=== PATIENT | female | born 1965 | race Caucasian/White ===

== ENCOUNTER 2018-08-19 20:50 | Emergency (ER) | payer MEDICARE ==
[2018-08-19] MEDS ORDERED: Sodium Chloride 0.9% 1,000 ML IV SCH (22:15)
--- NOTE | 2018-08-19 22:18 | EDM.PDOC ---
ED HPI GENERAL MEDICAL PROBLEM - General Chief Complaint: Drug or Alcohol Abuse Stated Complaint: ALISTAIR Time Seen by Provider: 08/19/18 22:05 Source of Information: Reports: EMS Notes Reviewed, RN Notes Reviewed History Limitations: Reports: Intoxication - History of Present Illness INITIAL COMMENTS - FREE TEXT/NARRATIVE: Patient is a 52-year-old female who presents via [facility] for the evaluation of a suspected head injury. The patient has been drinking heavily, and was witnessed falling outside of her apartment and hitting her head. The neighbors present told EMS personnel that they thought the patient was unconscious for a few minutes. The patient is inebriated at this time, and unable to answer many questions. She denies any pain in her body, and she states she was drinking beer tonight. - Related Data Allergies Allergy/AdvReac Type Severity Reaction Status Date / Time Unable to Assess Allergy Unverified 08/19/18 20:51 Home Meds: Home Meds . [Unable to Verify Home Med List] 08/19/18 [History] ED ROS GENERAL - Review of Systems Review Of Systems: See Below Constitutional: Reports: No Symptoms HEENT: Reports: No Symptoms Respiratory: Reports: No Symptoms Cardiovascular: Reports: No Symptoms Endocrine: Reports: No Symptoms GI/Abdominal: Reports: No Symptoms : Reports: No Symptoms Musculoskeletal: Reports: No Symptoms Skin: Reports: No Symptoms Neurological: Reports: Other (Witnessed LOC of a few minutes) Psychiatric: Reports: No Symptoms Hematologic/Lymphatic: Reports: No Symptoms - Physical Exam Exam: See Below Exam Limited By: Intoxication General Appearance: WD/WN, No Apparent Distress (pt is sleeping, is arousable and answers very few questions) Eye Exam: Bilateral Eye: Normal Inspection, PERRL Ears: Normal External Exam, Normal Canal, Hearing Grossly Normal, Normal TMs Nose: Normal Inspection, Normal Mucosa, No Blood Throat/Mouth: Normal Inspection, Normal Lips, Normal Teeth, Normal Gums, Normal Oropharynx, Normal Voice, No Airway Compromise Head Exam: Atraumatic, Normocephalic Neck: Normal Inspection, Supple, Non-Tender Respiratory/Chest: No Respiratory Distress, Lungs Clear, Normal Breath Sounds, No Accessory Muscle Use, Chest Non-Tender Cardiovascular: Normal Peripheral Pulses, Regular Rate, Rhythm, No Murmur GI/Abdominal: Normal Bowel Sounds, Soft, No Distention, No Mass. No: Guarding, Rigid Neuro Exam (Abbreviated): Other (acute alcohol intoxication, hard to assess. She does answer question with garbled speech when asked.) Back Exam: Normal Inspection Extremities: Normal Inspection, Normal Capillary Refill Skin Exam: Warm, Dry, Intact, Normal Color, No Rash Course - Vital Signs Last Recorded V/S: Last Vital Signs Temp 96.8 F 08/19/18 20:51 Pulse 93 08/19/18 20:51 Resp 18 08/19/18 20:51 BP 104/66 08/19/18 20:51 Pulse Ox 95 08/19/18 20:51 - Orders/Labs/Meds Orders: Active Orders 24 hr Category Date Time Status Head wo Cont [CT] Stat Exams 08/19/18 22:10 Ordered CBC WITH MANUAL DIFF [HEME] Stat Lab 08/19/18 22:11 Ordered Sodium Chloride 0.9% [Normal Saline] 1,000 ml Med 08/19/18 22:15 Ordered IV ASDIRECTED Medication Orders Sodium Chloride (Normal Saline) 1,000 mls @ 500 mls/hr IV ASDIRECTED JEN Last Admin: 08/19/18 22:18 Dose: 500 mls/hr Labs: Laboratory Tests 08/19/18 08/19/18 Range/Units 21:00 21:00 Neutrophils % (Manual) 64 H (40-60) % Band Neutrophils % 0 (0-10) % Lymphocytes % (Manual) 33 (20-40) % Atypical Lymphs % 0 % Monocytes % (Manual) 3 (2-10) % Eosinophils % (Manual) 0 L (0.7-5.8) % Basophils % (Manual) 0 L (0.1-1.2) Platelet Estimate Adequate RBC Morph Comment Normal Sodium 137 (136-145) mEq/L Potassium 3.8 (3.5-5.1) mEq/L Chloride 104 (98-107) mEq/L Carbon Dioxide 19 L (21-32) mEq/L Anion Gap 17.8 H (5-15) BUN 10 (7-18) mg/dL Creatinine 0.8 (0.55-1.02) mg/dL Est Cr Clr Drug Dosing TNP Estimated GFR (MDRD) > 60 (>60) mL/min BUN/Creatinine Ratio 12.5 L (14-18) Glucose 96 (74-106) mg/dL Calcium 8.8 (8.5-10.1) mg/dL Total Bilirubin 0.3 (0.2-1.0) mg/dL AST 37 (15-37) U/L ALT 61 H (14-59) U/L Alkaline Phosphatase 82 (46-116) U/L Total Protein 7.5 (6.4-8.2) g/dl Albumin 4.2 (3.4-5.0) g/dl Globulin 3.3 gm/dL Albumin/Globulin Ratio 1.3 (1-2) Ethyl Alcohol 0.25 (0.00) gm% Meds: Medications Generic Name Dose Route Start Last Admin Trade Name Freq PRN Reason Stop Dose Admin Sodium Chloride 1,000 mls @ 500 mls/hr 08/19/18 22:15 08/19/18 22:18 Normal Saline IV 500 mls/hr ASDIRECTED [facility] Administration - Re-Assessments/Exams Free Text/Narrative Re-Assessment/Exam: 08/19/18 22:18 Patient is brought to the ED for the evaluation of a suspected head injury. The patient is acutely intoxicated, I have ordered a head CT without contrast for further evaluation of this suspected head injury, have also ordered IV fluids to be started, a blood alcohol level, CBC, and CMP for further evaluation. 08/19/18 23:[address], is done and does not demonstrate any sign of acute bleed or infarct. This is reassuring. She will continue to get IV fluids and she was requesting some to drink some water at this time, this is fine with me at this time. 08/19/18 23:01 Pt's ETOH os 0.25 at this time, all other labs are WNL for her inebriated state. Pt was up to bathroom and was requesting to go home, I have talked her into staying for the IV fluids left (around 500mL). She will discharged after the fluids are done. Departure - Departure Time of Disposition: 23:10 Disposition: Home, Self-Care 01 Condition: Fair Clinical Impression: Alcohol intoxication Qualifiers: Complication of substance-induced condition: uncomplicated Qualified Code(s): F10.920 - Alcohol use, unspecified with intoxication, uncomplicated Head injury Qualifiers: Encounter type: initial encounter Qualified Code(s): S09.90XA - Unspecified injury of head, initial encounter - Discharge Information *PRESCRIPTION DRUG MONITORING PROGRAM REVIEWED*: No *COPY OF PRESCRIPTION DRUG MONITORING REPORT IN PATIENT PRICILLA: No Instructions: Alcohol Intoxication, [id number] Additional Instructions: You have been evaluated in the ED tonight for your head injury. You were acutely intoxicated at this ED visit. Your blood alcohol level was 0.25. You were given an IV bag of fluids to help remedy this. Your head CT done tonight shows no sign of any acute bleed or bony abnormality due to your fall and witnessed loss of consciousness by her neighbors. You will need to find someone to give you a ride home tonight, you should not be driving any sort of vehicle under the influence of alcohol. Please try to abstain from alcohol ingestion for the next 24 hours. Please return to the ED if your symptoms should change or worsen. - My Orders Last 24 Hours: My Active Orders 08/19/18 22:10 Head wo Cont [CT] Stat 08/19/18 22:11 CBC WITH MANUAL DIFF [HEME] Stat 08/19/18 22:15 Sodium Chloride 0.9% [Normal Saline] 1,000 ml IV ASDIRECTED - Assessment/Plan Last 24 Hours: My Active Orders 08/19/18 22:10 Head wo Cont [CT] Stat 08/19/18 22:11 CBC WITH MANUAL DIFF [HEME] Stat 08/19/18 22:15 Sodium Chloride 0.9% [Normal Saline] 1,000 ml IV ASDIRECTED
--- NOTE | 2018-08-21 10:42 | CT ---
Head CT Technique: Multiple axial sections through the brain were obtained. Intravenous contrast was not utilized. Comparison: No prior intracranial imaging. Findings: Ventricles along with basal cisterns and sulci over the convexities are mildly prominent. No abnormal parenchymal densities are seen. No evidence of intracranial hemorrhage. No midline shift or mass effect is seen. Bone window settings were reviewed which show no acute calvarial abnormality. Visualized sinuses are clear. Impression: 1. Mild generalized atrophy. 2. No acute intracranial abnormality is seen. Diagnostic code #2 I agree with preliminary report from [facility], finalized on 08/19/18, 11:52 PM Central Time
== END 2018-08-20 05:52 | disposition home or self-care (01) ==
LOC: JD.ED 20:50
DX: S06.9X9A Unspecified intracranial injury with loss of consciousness of unspecified duration, initial encounter (principal); F10.129 Alcohol abuse with intoxication, unspecified; Y90.8 Blood alcohol level of 240 mg/100 ml or more; W01.198A Fall on same level from slipping, tripping and stumbling with subsequent striking against other object, initial encounter
CPT/HCPCS: 36415; 70450; 80053; 85007; 85027; 96360; 96361; 99285; G0480; J7040; 99283

== ENCOUNTER 2018-11-20 11:46 | Emergency (ER) | payer MEDICARE ==
[2018-11-20] MEDS ORDERED: HYDROmorphone 0.5 MG/0.5 ML Syringe IVPUSH ONE (12:33)
[2018-11-20] MEDS ORDERED: Ondansetron 4 MG/2 ML SDV IVPUSH ONE (12:33)
[2018-11-20] MEDS ORDERED: Sodium Chloride 0.9% 10 ML Syringe FLUSH PRN (12:33)
[2018-11-20] MEDS ORDERED: Sodium Chloride 0.9% 1,000 ML IV ONE (12:33)
--- NOTE | 2018-11-20 12:40 | EDM.PDOC ---
ED HPI GENERAL MEDICAL PROBLEM - General Chief Complaint: Gastrointestinal Problem Stated Complaint: ABD PAIN/VOMITING/DIARRHEA/RECTAL BLEEDING Time Seen by Provider: 11/20/18 12:25 Source of Information: Reports: Patient History Limitations: Reports: No Limitations - History of Present Illness INITIAL COMMENTS - FREE TEXT/NARRATIVE: Patient is a 53-year-old female who presents to the ED complaining of left lower quadrant abdominal pain with nausea vomiting, diarrhea, and blood within her stool. Patient states this morning approximately 4:00 she awoke with nausea and has vomited multiple times. She also developed some diarrhea and noticed some blood present within her stool. Pain is located a left lower quadrant has had frequent BMs since onset. There has been no ingestion of any questionable food. His been no fever, dysuria, history of C. difficile, history of ulcerative colitis or Crohn's, history of diverticulitis, history constipation, history of acid reflux, and or recent NSAID use. She just recently completed azithromycin for sinus infection one week ago. There's been no recent sick contacts. She denies any lightheadedness, chest pain, short of breath, dysuria, hematuria, rash, or any additional complaints. Left Lower Abdomen Pain Score (Numeric/FACES): 9 - Related Data Allergies Allergy/AdvReac Type Severity Reaction Status Date / Time bee venom protein (honey bee) Allergy Anaphylactic Verified 11/20/18 12:12 Shock gabapentin Allergy Hives Verified 11/20/18 12:12 lamotrigine [From Lamictal] Allergy Hives Verified 11/20/18 12:12 liver extract Allergy Hives Verified 11/20/18 12:12 Penicillins Allergy Anaphylactic Verified 11/20/18 12:12 Shock Home Meds: Home Meds Acetaminophen/HYDROcodone [[place] 325-5 MG] 1 tab PO Q6H PRN #12 tablet 11/20/18 [Rx] Ciprofloxacin HCl [Cipro] 500 mg PO BID #14 tablet 11/20/18 [Rx] Cyanocobalamin/Folic Acid [Vitamin U23-Umhth Acid] 1 tab PO DAILY 11/20/18 [ History] Ergocalciferol (Vitamin D2) [Vitamin D2] 2,000 units PO DAILY 11/20/18 [History] Levothyroxine 112 mcg PO DAILY 11/20/18 [History] Lisinopril [Prinivil] 20 mg PO DAILY 11/20/18 [History] Melatonin 6 mg PO BEDTIME PRN 11/20/18 [History] Ondansetron [Zofran ODT] 4 mg PO Q6H PRN #15 tab.dis 11/20/18 [Rx] QUEtiapine Fumarate [Seroquel] 400 mg PO DAILY 11/20/18 [History] Rosuvastatin [Crestor] 10 mg PO DAILY 11/20/18 [History] Topiramate [Topamax] 50 mg PO DAILY 11/20/18 [History] Zolpidem Tartrate [Ambien] 5 mg PO BEDTIME 11/20/18 [History] cloNIDine [Catapres-TTS 1] 0.2 mg PO DAILY PRN 11/20/18 [History] metroNIDAZOLE [Flagyl] 500 mg PO Q8H #21 tab 11/20/18 [Rx] Past Medical History HEENT History: Reports: Impaired Vision Cardiovascular History: Reports: Arrhythmia Respiratory History: Reports: Other (See Below) Other Respiratory History: chronic sinusitis [employer] History: Reports: Musculoskeletal History: Reports: Fibromyalgia Psychiatric History: Reports: Anxiety, Bipolar, PTSD Endocrine/Metabolic History: Reports: Hypothyroidism Hematologic History: Reports: Anemia Dermatologic History: Reports: Psoriasis - Past Surgical History HEENT Surgical History: Reports: Oral Surgery Female Surgical History: Reports: Section, Hysterectomy, Tubal Ligation Musculoskeletal Surgical History: Reports: Other (See Below) Other Musculoskeletal Surgeries/Procedures:: R foot fusion Social & Family History - Family History Family Medical History: Noncontributory - Tobacco Use Smoking Status *Q: Current Every Day Smoker Years of Tobacco use: 8 Packs/Tins Daily: 0.2 - Caffeine Use Caffeine Use: Reports: Coffee, Energy Drinks, Soda, Tea - Recreational Drug Use Recreational Drug Use: No ED ROS GENERAL - Review of Systems Review Of Systems: See Below Constitutional: Reports: Decreased Appetite. Denies: Fever, Chills, Malaise, Weakness, Fatigue Respiratory: Denies: Shortness of Breath, Cough, Sputum Cardiovascular: Denies: Chest Pain, Dyspnea on Exertion, Lightheadedness, Palpitations, Syncope GI/Abdominal: Reports: Abdominal Pain, Bloody Stool, Diarrhea, Decreased Appetite, Nausea, Vomiting. Denies: Black Stool, Constipation, Difficulty Swallowing, Distension, Flatus, Hematemesis, Melena : Denies: Discharge, Dysuria, Flank Pain, Frequency, Hematuria, Urgency Musculoskeletal: Reports: No Symptoms Skin: Reports: No Symptoms ED EXAM, GI/ABD - Physical Exam Exam: See Below Exam Limited By: No Limitations General Appearance: Alert, WD/WN, No Apparent Distress Eyes: Bilateral: Normal Appearance Ears: Hearing Grossly Normal Nose: Normal Inspection Throat/Mouth: Normal Inspection, Normal Oropharynx, Normal Voice, No Airway Compromise Head: Atraumatic, Normocephalic Neck: Normal Inspection, Supple, Non-Tender, Full Range of Motion Respiratory/Chest: No Respiratory Distress, Lungs Clear, Normal Breath Sounds, No Accessory Muscle Use, Chest Non-Tender Cardiovascular: Normal Peripheral Pulses, Regular Rate, Rhythm, No Murmur GI/Abdominal Exam: Normal Bowel Sounds, Soft, No Organomegaly, No Distention, Tender (Left lower quadrant) Back Exam: Normal Inspection, Full Range of Motion. No: CVA Tenderness (L), CVA Tenderness (R) Extremities: Normal Inspection, Normal Range of Motion, Non-Tender Neurological: Alert, Oriented, CN II-XII Intact, Normal Cognition, No Motor/ Sensory Deficits Psychiatric: Normal Affect, Normal Mood Skin Exam: Warm, Dry, Intact, Normal Color, No Rash Course - Vital Signs Last Recorded V/S: Last Vital Signs Temp 97.9 F 11/20/18 12:04 Pulse 85 11/20/18 12:04 Resp 22 H 11/20/18 12:04 BP 166/98 H 11/20/18 12:04 Pulse Ox 98 11/20/18 12:04 - Orders/Labs/Meds Orders: Active Orders 24 hr Category Date Time Status Peripheral IV Care [RC] . DIRECTED Care 11/20/18 12:34 Active CULTURE STOOL + SHIGATOX [RM] Stat Lab 11/20/18 12:30 Received Sodium Chloride 0.9% [Saline Flush] Med 11/20/18 12:33 Active 10 ml FLUSH ASDIRECTED PRN Isolation [COMM] Stat Oth 11/20/18 12:34 Ordered Peripheral IV Insertion Adult [OM.PC] Routine Oth 11/20/18 12:33 Ordered Medication Orders Sodium Chloride (Saline Flush) 10 ml FLUSH ASDIRECTED PRN PRN Reason: Keep Vein Open Last Admin: 11/20/18 12:58 Dose: 10 ml Labs: Laboratory Tests 11/20/18 11/20/18 11/20/18 Range/Units 12:30 12:55 12:55 WBC 8.66 (3.98-10.04) K/mm3 RBC 5.02 (3.98-5.22) M/mm3 Hgb 14.9 (11.2-15.7) gm/L Hct 43.6 (34.1-44.9) % MCV 86.9 (79.4-94.8) fl MCH 29.7 (25.6-32.2) pg MCHC 34.2 (32.2-35.5) g/dl RDW Std Deviation 40.4 (36.4-46.3) fL Plt Count 272 (182-369) K/mm3 MPV 8.8 L (9.4-12.3) fl Neutrophils % (Manual) 80 H (40-60) % Band Neutrophils % 4 (0-10) % Lymphocytes % (Manual) 12 L (20-40) % Atypical Lymphs % 0 % Monocytes % (Manual) 4 (2-10) % Eosinophils % (Manual) 0 L (0.7-5.8) % Basophils % (Manual) 0 L (0.1-1.2) Platelet Estimate Adequate RBC Morph Comment Normal Sodium 137 (136-145) mEq/L Potassium 3.9 (3.5-5.1) mEq/L Chloride 106 (98-107) mEq/L Carbon Dioxide 21 (21-32) mEq/L Anion Gap 13.9 (5-15) BUN 9 (7-18) mg/dL Creatinine 0.8 (0.55-1.02) mg/dL Est Cr Clr Drug Dosing 65.73 mL/min Estimated GFR (MDRD) > 60 (>60) mL/min BUN/Creatinine Ratio 11.3 L (14-18) Glucose 116 H (74-106) mg/dL Lactic Acid (0.4-2.0) mmol/L Calcium 9.3 (8.5-10.1) mg/dL Total Bilirubin 0.5 (0.2-1.0) mg/dL AST 22 (15-37) U/L ALT 59 (14-59) U/L Alkaline Phosphatase 84 (46-116) U/L C-Reactive Protein < 0.2 (<1.0) mg/dL Total Protein 8.0 (6.4-8.2) g/dl Albumin 4.5 (3.4-5.0) g/dl Globulin 3.5 gm/dL Albumin/Globulin Ratio 1.3 (1-2) Lipase 125 (73-393) U/L Urine Color (Yellow) Urine Appearance (Clear) Urine pH (5.0-8.0) Ur Specific [place] (1.005-1.030) Urine Protein (Negative) Urine Glucose (UA) (Negative) Urine Ketones (Negative) Urine Occult Blood (Negative) Urine Nitrite (Negative) Urine Bilirubin (Negative) Urine Urobilinogen (0.2-1.0) Ur Leukocyte Esterase (Negative) Urine RBC (0-5) /hpf Urine WBC (0-5) /hpf Ur Squamous Epith Cells (0-5) /hpf Urine Bacteria (FEW) /hpf Urine Mucus (FEW) /hpf C.difficile [id number] Presumptive negative C. difficile Tox (PCR) Negative 11/20/18 11/20/18 Range/Units 13:26 Unknown WBC (3.98-10.04) K/mm3 RBC (3.98-5.22) M/mm3 Hgb (11.2-15.7) gm/L Hct (34.1-44.9) % MCV (79.4-94.8) fl MCH (25.6-32.2) pg MCHC (32.2-35.5) g/dl RDW Std Deviation (36.4-46.3) fL Plt Count (182-369) K/mm3 MPV (9.4-12.3) fl Neutrophils % (Manual) (40-60) % Band Neutrophils % (0-10) % Lymphocytes % (Manual) (20-40) % Atypical Lymphs % % Monocytes % (Manual) (2-10) % Eosinophils % (Manual) (0.7-5.8) % Basophils % (Manual) (0.1-1.2) Platelet Estimate RBC Morph Comment Sodium (136-145) mEq/L Potassium (3.5-5.1) mEq/L Chloride (98-107) mEq/L Carbon Dioxide (21-32) mEq/L Anion Gap (5-15) BUN (7-18) mg/dL Creatinine (0.55-1.02) mg/dL Est Cr Clr Drug Dosing mL/min Estimated GFR (MDRD) (>60) mL/min BUN/Creatinine Ratio (14-18) Glucose (74-106) mg/dL Lactic Acid 1.5 (0.4-2.0) mmol/L Calcium (8.5-10.1) mg/dL Total Bilirubin (0.2-1.0) mg/dL AST (15-37) U/L ALT (14-59) U/L Alkaline Phosphatase (46-116) U/L C-Reactive Protein (<1.0) mg/dL Total Protein (6.4-8.2) g/dl Albumin (3.4-5.0) g/dl Globulin gm/dL Albumin/Globulin Ratio (1-2) Lipase (73-393) U/L Urine Color Light yellow (Yellow) Urine Appearance Clear (Clear) Urine pH 7.0 (5.0-8.0) Ur Specific [place] 1.015 (1.005-1.030) Urine Protein Negative (Negative) Urine Glucose (UA) Negative (Negative) Urine Ketones Negative (Negative) Urine Occult Blood Trace-intact H (Negative) Urine Nitrite Negative (Negative) Urine Bilirubin Negative (Negative) Urine Urobilinogen 0.2 (0.2-1.0) Ur Leukocyte Esterase Negative (Negative) Urine RBC Not seen (0-5) /hpf Urine WBC Not seen (0-5) /hpf Ur Squamous Epith Cells Not seen (0-5) /hpf Urine Bacteria Not seen (FEW) /hpf Urine Mucus Not seen (FEW) /hpf C.difficile [id number] C. difficile Tox (PCR) Meds: Medications Generic Name Dose Route Start Last Admin Trade Name Freq PRN Reason Stop Dose Admin Sodium Chloride 10 ml 11/20/18 12:33 11/20/18 12:58 Saline Flush FLUSH 10 ml ASDIRECTED PRN Administration Keep Vein Open Discontinued Medications Generic Name Dose Route Start Last Admin Trade Name Freq PRN Reason Stop Dose Admin Diatrizoate Meglum/Diatrizoate Sod 90 ml 11/20/18 12:56 11/20/18 13:43 Gastrografin 37% PO 11/20/18 12:57 90 ml ONETIME ONE Administration Hydromorphone HCl 0.5 mg 11/20/18 12:33 11/20/18 12:56 Dilaudid IVPUSH 11/20/18 12:34 0.5 mg ONETIME ONE Administration Sodium Chloride 1,000 mls @ 500 mls/hr 11/20/18 12:33 11/20/18 12:55 Normal Saline IV 11/20/18 14:32 500 mls/hr ONETIME ONE Administration Iopamidol 100 ml 11/20/18 12:56 11/20/18 13:44 Isovue-300 (61%) IVPUSH 11/20/18 12:57 100 ml ONETIME ONE Administration Ondansetron HCl 4 mg 11/20/18 12:33 11/20/18 12:55 Zofran IVPUSH 11/20/18 12:34 4 mg ONETIME ONE Administration Sodium Chloride 10 ml 11/20/18 12:56 11/20/18 13:44 Saline Flush FLUSH 11/20/18 12:57 10 ml ONETIME ONE Administration - Re-Assessments/Exams Free Text/Narrative Re-Assessment/Exam: Vital signs are stable. She does have some pain to the left lower quadrant. Stool sample had blood present. IV will be established with Zofran 4 mg IVP, Dilaudid 0.5 mg IVP, and normal saline 500 mL per hour. Initial labs and studies will include: CBC, C. difficile, CMP, CRP, stool culture, lactic acid, lipase, UA, stool wbc's, and CT abdomen and pelvis with oral and IV contrast. Labs reviewed: CBC and chem 14 were essentially normal. Lactic acid 1.5. Lipase 125. CRP within normal limits. UA trace occult blood. C. difficile negative. Stool wbc's positive. CT abdomen and pelvis revealed possible mild nonspecific colitis within the descending Colon. No other acute abnormality is seen. Reassessment, patient's feeling much better after the above therapies Stool cultures have been obtained. I will treat with Cipro and Flagyl at this time. Return precautions were discussed with the patient. Discharge instructions as documented..11/20/18 16:09 Departure - Departure Time of Disposition: 16:11 Disposition: Home, Self-Care 01 Condition: Good Clinical Impression: Colitis - Discharge Information Prescriptions: Acetaminophen/HYDROcodone [[place] 325-5 MG] 1 tab PO Q6H PRN #12 tablet PRN Reason: Pain (Severe 7-10) Ciprofloxacin HCl [Cipro] 500 mg PO BID #14 tablet metroNIDAZOLE [Flagyl] 500 mg PO Q8H #21 tab Ondansetron [Zofran ODT] 4 mg PO Q6H PRN #15 tab.dis PRN Reason: Nausea/Vomiting Instructions: Dehydration, Adult, [id number], Colitis, Nausea and Vomiting, Adult, [id number], Pain Medicine Instructions, [id number] Referrals: James Cook MD [Primary Care Provider] - Forms: ED Department Discharge Additional Instructions: As discussed CT of the abdomen revealed you have colitis. You will be treated with Cipro 500 mg 1 tablet twice a day for 7 days, Flagyl 500 mg 3 times a day for 7 days, Zofran 4 mg every 6 hours when necessary nausea and vomiting, and [place] one tab every 6 hours when necessary for severe pain. Stick with a clear liquid diet for the next 48 hours. Thereafter advance to a low residue diet for the next 48 hours and then thereafter to a bland diet. May advance thereafter normal diet as able. Please do not drive today and for while taking the hydrocodone. Push the fluids. Follow-up with PCP in the next 3-5 days for reevaluation. Return to the ED if you develop any new or worsening symptoms as discussed. - My Orders Last 24 Hours: My Active Orders 11/20/18 12:30 CULTURE STOOL + SHIGATOX [RM] Stat 11/20/18 12:33 Sodium Chloride 0.9% [Saline Flush] 10 ml FLUSH ASDIRECTED PRN Peripheral IV Insertion Adult [OM.PC] Routine 11/20/18 12:34 Peripheral IV Care [RC] . DIRECTED Isolation [COMM] Stat - Assessment/Plan Last 24 Hours: My Active Orders 11/20/18 12:30 CULTURE STOOL + SHIGATOX [RM] Stat 11/20/18 12:33 Sodium Chloride 0.9% [Saline Flush] 10 ml FLUSH ASDIRECTED PRN Peripheral IV Insertion Adult [OM.PC] Routine 11/20/18 12:34 Peripheral IV Care [RC] . DIRECTED Isolation [COMM] Stat
[2018-11-20] MEDS ORDERED: Sodium Chloride 0.9% 10 ML Syringe FLUSH ONE (12:56)
[2018-11-20] MEDS ORDERED: Iopamidol 612 MG/ML 100 ML Bottle IVPUSH ONE (12:56)
[2018-11-20] MEDS ORDERED: Diatrizoate Meglumine/Diatrizoate Sodium 37% 120 ML Bottle PO ONE (12:56)
--- NOTE | 2018-11-20 14:18 | CT ---
CT abdomen and pelvis Technique: Multiple axial sections were obtained from above the dome of the diaphragm inferiorly through the pubic symphysis. Intravenous and oral contrast was utilized. Delayed images were obtained through the bladder. Comparison: No previous abdominal imaging. Findings: Visualized lung bases show nothing acute. Liver contains no focal abnormality. Spleen appears within normal limits. Adrenal glands show no nodule. Kidneys show symmetric contrast enhancement without hydronephrosis or mass. Pancreas is within normal limits. Gallbladder contains no calcified gallstones. Aorta shows no aneurysm. No retroperitoneal adenopathy or mesenteric abnormalities are seen. No pelvic mass or adenopathy is seen. Previous hysterectomy is noted. Diverticuli are seen within the sigmoid colon without diverticulitis. No free fluid or inflammatory change is seen. Appendix is seen which is normal in size. Slight bowel wall thickening is possible within the descending colon. The colon is not well distended to confirm but there does appear to be very slight surrounding inflammatory changes suggesting a nonspecific colitis. Delayed images show contrast within the distal ureters and within the bladder. Bone window settings were reviewed which appear within normal limits for the patient's age. No acute osseous abnormality is seen. Impression: 1. Possible mild nonspecific colitis within the descending colon. 2. No other acute abnormality is seen. Diagnostic code #3
== END 2018-11-20 16:25 | disposition home or self-care (01) ==
LOC: JD.ED 11:46
DX: K52.9 Noninfective gastroenteritis and colitis, unspecified (principal); F41.9 Anxiety disorder, unspecified; E03.9 Hypothyroidism, unspecified; K21.9 Gastro-esophageal reflux disease without esophagitis; F17.210 Nicotine dependence, cigarettes, uncomplicated; Z91.030 Bee allergy status; Z88.0 Allergy status to penicillin; Z91.018 Allergy to other foods; Z88.8 Allergy status to other drugs, medicaments and biological substances; Z79.899 Other long term (current) drug therapy; Z90.710 Acquired absence of both cervix and uterus; Z98.51 Tubal ligation status
CPT/HCPCS: 36415; 74177; 80053; 81001; 83605; 83690; 85007; 85027; 86140; 87046; 87493; 89055; 96361; 96374; 96375; 99284; J1170; J2405; J7040; Q9963; Q9967

== ENCOUNTER 2019-04-23 12:20 | Emergency (ER) | payer MEDICARE ==
--- NOTE | 2019-04-23 13:11 | EDM.PDOC ---
ED HPI GENERAL MEDICAL PROBLEM - General Chief Complaint: Skin Complaint Stated Complaint: ALLERGIC RX Time Seen by Provider: 04/23/19 12:31 Source of Information: Reports: Patient History Limitations: Reports: No Limitations - History of Present Illness INITIAL COMMENTS - FREE TEXT/NARRATIVE: Patient is a 53-year-old female who presents with complaints of facial redness, swelling, and itching for the last 2 days. She also states her tip of her tongue feels a little numb and taste different. She has been using Benadryl for the last 2 days and does have some improvement with this. Patient states that she has had similar symptoms in the past as a result of her " antidepressant medications ". She states if she is on them too long she becomes allergic to them. She also states that when her thyroid "is not right "she can get the symptoms. After much discussion, it was found that Tuesday she used a new [id number] face cream, however it was causing her to break out so she only used it the one time. She also started using a new face foundation on Tuesday. These symptoms began Tuesday morning. Denies any difficulty breathing or swelling of her tongue or throat. States that the rash has been localized to her face. - Related Data Allergies Allergy/AdvReac Type Severity Reaction Status Date / Time bee venom protein (honey bee) Allergy Anaphylactic Verified 04/23/19 12:31 Shock gabapentin Allergy Hives Verified 04/23/19 12:31 lamotrigine [From Lamictal] Allergy Hives Verified 04/23/19 12:31 liver extract Allergy Hives Verified 04/23/19 12:31 Penicillins Allergy Anaphylactic Verified 04/23/19 12:31 Shock Home Meds: Home Meds Acetaminophen/HYDROcodone [Danielson 325-5 MG] 1 tab PO Q6H PRN #12 tablet 11/20/18 [Rx] Ciprofloxacin HCl [Cipro] 500 mg PO BID #14 tablet 11/20/18 [Rx] Cyanocobalamin/Folic Acid [Vitamin P67-Xezza Acid] 1 tab PO DAILY 11/20/18 [ History] Ergocalciferol (Vitamin D2) [Vitamin D2] 2,000 units PO DAILY 11/20/18 [History] Levothyroxine 112 mcg PO DAILY 11/20/18 [History] Melatonin 6 mg PO BEDTIME PRN 11/20/18 [History] Ondansetron [Zofran ODT] 4 mg PO Q6H PRN #15 tab.dis 11/20/18 [Rx] QUEtiapine Fumarate [Seroquel] 400 mg PO DAILY 11/20/18 [History] Rosuvastatin [Crestor] 10 mg PO DAILY 11/20/18 [History] Topiramate [Topamax] 50 mg PO DAILY 11/20/18 [History] Zolpidem Tartrate [Ambien] 5 mg PO BEDTIME 11/20/18 [History] cloNIDine [Catapres-TTS 1] 0.2 mg PO DAILY PRN 11/20/18 [History] lisinopriL [Prinivil] 20 mg PO DAILY 11/20/18 [History] metroNIDAZOLE [Flagyl] 500 mg PO Q8H #21 tab 11/20/18 [Rx] predniSONE [Prednisone] 20 mg PO ASDIRECTED #10 tablet 04/23/19 [Rx] Past Medical History HEENT History: Reports: Impaired Vision Cardiovascular History: Reports: Arrhythmia Respiratory History: Reports: Other (See Below) Other Respiratory History: chronic sinusitis DESK [employer] History: Reports: Musculoskeletal History: Reports: Fibromyalgia Psychiatric History: Reports: Anxiety, Bipolar, PTSD Endocrine/Metabolic History: Reports: Hypothyroidism Hematologic History: Reports: Anemia Dermatologic History: Reports: Psoriasis - Past Surgical History HEENT Surgical History: Reports: Oral Surgery Female Surgical History: Reports: Section, Hysterectomy, Tubal Ligation Musculoskeletal Surgical History: Reports: Other (See Below) Other Musculoskeletal Surgeries/Procedures:: R foot fusion Social & Family History - Family History Family Medical History: Noncontributory - Tobacco Use Smoking Status *Q: Current Every Day Smoker Years of Tobacco use: 7 Packs/Tins Daily: 0.2 - Caffeine Use Caffeine Use: Reports: Coffee, Energy Drinks - Recreational Drug Use Recreational Drug Use: No ED ROS GENERAL - Review of Systems Review Of Systems: Comprehensive ROS is negative, except as noted in HPI. ED EXAM, SKIN/RASH Exam: See Below Exam Limited By: No Limitations General Appearance: Alert, WD/WN, No Apparent Distress Throat/Mouth: Normal Inspection, Normal Lips, Normal Teeth, Normal Gums, Normal Oropharynx, Normal Voice, No Airway Compromise, Other (No edema or inflammation noted to the mouth or oropharynx.) Respiratory/Chest: No Respiratory Distress, Lungs Clear, Normal Breath Sounds, No Accessory Muscle Use, Chest Non-Tender Cardiovascular: Normal Peripheral Pulses, Regular Rate, Rhythm, No Edema, No Gallop, No JVD, No Murmur, No Rub Neurological: Alert, Oriented, CN II-XII Intact, Normal Cognition, Normal Gait, Normal Reflexes, No Motor/Sensory Deficits Psychiatric: Normal Affect, Normal Mood Skin: Warm, Dry, Intact, Other (Slight erythema noted over the nose and bilateral cheeks.) Course - Vital Signs Last Recorded V/S: Last Vital Signs Temp 98.4 F 04/23/19 12:33 Pulse 92 04/23/19 12:33 Resp 13 04/23/19 12:33 BP 150/108 H 04/23/19 12:33 Pulse Ox 100 04/23/19 12:33 - Orders/Labs/Meds Labs: Laboratory Tests 04/23/19 Range/Units 13:22 Triglycerides 262 H (<150) mg/dL Cholesterol 164 (<200) mg/dL LDL Cholesterol Direct 73 (<100) mg/dL HDL Cholesterol 53.0 (40-59) mg/dL TSH 3rd Generation 0.841 (0.358-3.74) uIU/mL Meds: Medications Discontinued Medications Generic Name Dose Route Start Last Admin Trade Name Abdiq PRN Reason Stop Dose Admin Prednisone 40 mg 04/24/19 12:58 Prednisone PO 04/24/19 12:59 ONETIME ONE Prednisone Confirm 04/23/19 13:30 04/23/19 13:35 Prednisone Administered 04/23/19 13:31 40 mg Dose Administration 40 mg .ROUTE .STK-MED ONE Departure - Departure Time of Disposition: 14:25 Disposition: Home, Self-Care 01 Condition: Fair Clinical Impression: Contact dermatitis Qualifiers: Contact dermatitis type: allergic Contact dermatitis trigger: cosmetics Qualified Code(s): L23.2 - Allergic contact dermatitis due to cosmetics - Discharge Information *PRESCRIPTION DRUG MONITORING PROGRAM REVIEWED*: No *COPY OF PRESCRIPTION DRUG MONITORING REPORT IN PATIENT PRICILLA: No Prescriptions: predniSONE [Prednisone] 20 mg PO ASDIRECTED #10 tablet Instructions: Contact Dermatitis, [id number] Referrals: James Cook MD [Primary Care Provider] - Forms: ED Department Discharge Additional Instructions: You were seen in the emergency department today for redness, swelling, and itching to your face. As we discussed, I feel is likely this is from either the new face cream you are using or the new foundation you are using. I would recommend that you discontinue use of both of these products. You have been provided a prescription for prednisone. Take that as prescribed. You may also continue to use Benadryl as needed. Follow-up with your psychiatrist as scheduled tomorrow to discuss the possibility of an allergy to their Seroquel. If you should experience any worsening symptoms, please do not hesitate to return to the emergency department. Sepsis Event Note - Evaluation Sepsis Screening Result: No Definite Risk - Focused Exam Vital Signs: Vital Signs Temp Pulse Resp BP Pulse Ox 04/23/19 12:33 98.4 F 92 13 150/108 H 100 Date Exam was Performed: 04/23/19 Time Exam was Performed: 23:05
[2019-04-23] MEDS ORDERED: predniSONE 20 MG Tab ONE (13:30)
[2019-04-24] MEDS ORDERED: predniSONE 20 MG Tab PO ONE (12:58)
== END 2019-04-23 14:30 | disposition home or self-care (01) ==
LOC: JD.ED 12:20
DX: L23.2 Allergic contact dermatitis due to cosmetics (principal); E03.9 Hypothyroidism, unspecified; F31.9 Bipolar disorder, unspecified; F17.210 Nicotine dependence, cigarettes, uncomplicated; Z91.030 Bee allergy status; Z91.018 Allergy to other foods; Z79.890 Hormone replacement therapy; Z79.899 Other long term (current) drug therapy; Z88.8 Allergy status to other drugs, medicaments and biological substances; Z88.0 Allergy status to penicillin
CPT/HCPCS: 36415; 82465; 83718; 83721; 84443; 84478; 99283; A9270

== ENCOUNTER 2024-04-04 15:17 | Emergency (ER) | payer MEDICARE, MEDICAID | END 2024-04-04 17:30 | disposition home or self-care (01) | LOC: JD.ED 15:17 | DX: S51.012A Laceration without foreign body of left elbow, initial encounter (principal); E03.9 Hypothyroidism, unspecified; Z87.891 Personal history of nicotine dependence; Z79.899 Other long term (current) drug therapy; Z88.0 Allergy status to penicillin; Z91.048 Other nonmedicinal substance allergy status; Z88.8 Allergy status to other drugs, medicaments and biological substances; Z91.030 Bee allergy status; W08.XXXA Fall from other furniture, initial encounter | CPT/HCPCS: 12001; 99282 ==